=== PATIENT | female | born 1935 | race Caucasian/White ===

== ENCOUNTER 2016-04-06 19:11 | Inpatient (IN) | payer MEDICARE ==
[2016-04-06 23:14] VITALS: BP 130/66
[2016-04-06] MEDS ORDERED: Lactulose 10 Gm/15 mL 30mL UDC PO PRN (23:31)
[2016-04-07] MEDS: Multivitamin Tab PO SCH (09:37)
[2016-04-07] MEDS: Pantoprazole 40 mg EC Tab PO SCH (09:37)
--- NOTE | 2016-04-07 14:03 | Consultation ---
HISTORY OF PRESENT ILLNESS: An 80-year-old female patient of mine admitted to Geropsych Unit. PAST MEDICAL HISTORY: Significant for coronary artery disease, ____, arthritis, osteoporosis. SOCIAL HISTORY: No history of smoking or alcohol abuse. OBSTETRICAL HISTORY: P 2+0. Menses are postmenopausal. REVIEW OF SYSTEMS: No chest pain or shortness of breath. No nausea, no vomiting. Arthritic gait. PHYSICAL EXAMINATION: GENERAL: An elderly female in obvious respiratory distress. VITAL SIGNS: Include a blood pressure of 110/70, heart rate ____, respiratory rate of 18. SKIN: Show no cellulitis. HEENT: Normal conjunctivae. NECK: Supple. LUNGS: Clear. HEART: S1 and S2 present.. ABDOMEN: Soft, minimal epigastric tenderness. Bowel sounds good. EXTREMITIES: Show arthritis. NEUROLOGICAL: Dementia. ADMITTING DIAGNOSES: ____, arthritis, coronary artery disease, osteoporosis and dementia. TREATMENT PLAN: The patient is on Ativan, lactulose, Tylenol, Naprosyn and Protonix. JOB# [id number]
[2016-04-08] MEDS: Pantoprazole 40 mg EC Tab PO SCH (09:00)
[2016-04-08] MEDS: Multivitamin Tab PO SCH (09:00)
--- NOTE | 2016-04-08 18:53 | Psychosocial Evaluation ---
CHIEF COMPLAINT: Psychotic disorder. HISTORY OF PRESENT ILLNESS: The patient is an 80-year-old female with a history of dementia, was admitted to the hospital for increased confusion, agitation. The patient has been restless, wandering on the unit, refusing to talk, appetite is slow, assisted living facility no longer able to care for her because of increased agitation. The patient will attempt to undress at times and requires redirection by staff. PAST PSYCHIATRIC HISTORY: Dementia and psychosis and depression. PAST MEDICAL HISTORY: Significant for coronary artery disease, arthritis, osteoporosis. PSYCHOSOCIAL HISTORY: The patient resides in an assisted living, ____ this time unclear if she can return. MENTAL STATUS EXAMINATION: The patient was uncooperative, paranoid, keeping to herself, wandering on the unit, confused, oriented to person, not oriented to time or place. She is selectively mute. Insight is poor, judgment is impaired. The patient's strength; The patient is passively accepting treatment when approached by staff. The patient's weakness, lack of insight. ASSESSMENT: Major depressive disorder with psychosis; dementia, Alzheimer's type. Rule out delirium no otherwise specified. ____ medical history. PLAN: At this time, we will admit the patient for hospitalization, will start individual, group therapy, assess psychopharmacological intervention. ESTIMATED LENGTH OF STAY: 7 days. CRITERIA FOR DISCHARGE: Improved condition. No psychosis and safe disposition outpatient treatment plan. [facility]# [id number]
--- NOTE | 2016-04-09 03:42 | Progress Notes ---
SUBJECTIVE: I met this patient, discussed with staff, chart reviewed. Still restless, confused, still wandering on the unit, mostly talking to herself, responding to internal stimuli. Her insight is poor, judgment remains impaired. The patient however, slept fairly very well and her appetite is fair. Her insight is still poor, judgment remains impaired. ASSESSMENT: The patient is still confused, still in psychotic phase. PLAN: We will continue stabilization. Continue to monitor closely. Continue supportive measures. The patient was started on Aricept 5 mg daily. Consider adding small dose of Seroquel ____. We will monitor. JOB# [id number]
[2016-04-09] MEDS: Multivitamin Tab PO SCH (09:42)
[2016-04-09] MEDS: Pantoprazole 40 mg EC Tab PO SCH (09:42)
--- NOTE | 2016-04-10 06:02 | Progress Notes ---
SUBJECTIVE: I met with this patient, discussed with staff. Still superficial, disorganized, refusing to talk, selectively mute at times. The patient is still guarded, internally preoccupied; however, she is taking her medications. Her insight is still poor, judgment remains impaired. ASSESSMENT: The patient is still in psychotic phase. PLAN: We will continue hospitalization. Continue medication management. Continue supportive measures. Continue the Aricept 5 mg p.o. every day. We will monitor condition for the time being ____ 0.5 mg p.o. at bedtime. JOB# [id number]
[2016-04-10] MEDS: Multivitamin Tab PO SCH (09:25)
[2016-04-10] MEDS: Pantoprazole 40 mg EC Tab PO SCH (09:25)
--- NOTE | 2016-04-10 23:04 | Progress Notes ---
PSYCHIATRIC PROGRESS NOTE TIME PATIENT SEEN: 10:00 a.m. SUBJECTIVE: Staff was spoken to. The patient is interviewed. Mood is noted to be irritable. Affect is constricted. The patient is confused and pacing on the unit and trying to take her clothes off and has been trying to get into other people's rooms. The patient needs to be redirected. Coping skills are noted to be extremely poor. Sleep and appetite are also noted to be very poor. The patient has been having a lot of anxiety. The patient has been placed on Ativan. In view of the cognitive deficits, the patient is going to be placed on the Aricept and Namenda and low dose of the antipsychotic medication is going to be considered. ASSESSMENT: The patient is demented and confused. PLAN: To continue the patient with supportive therapy. I encouraged the patient to verbalize the concerns rather than to act out. JOB# [id number]
[2016-04-11] MEDS: Multivitamin Tab PO SCH (10:18)
[2016-04-11] MEDS: Pantoprazole 40 mg EC Tab PO SCH (10:18)
--- NOTE | 2016-04-12 00:50 | Progress Notes ---
TIME PATIENT SEEN: 08:00 a.m. SUBJECTIVE: Staff was spoken to. The patient is interviewed. Mood is noted to be irritable. Affect is constricted. The patient is confused and has been pacing most of the time on the unit. The patient has to be redirected. The patient has no insight into her illness. The patient is currently on 0.5 mg of the Ativan and in view of the patient's psychosis, possibly the patient is going to be started on low dose of the Seroquel and again to be followed up with the supportive therapy. ASSESSMENT: The patient is still confused, demented and agitated. PLAN: To continue the patient with the current medications and follow up. JOB# [id number]
[2016-04-12] MEDS: Pantoprazole 40 mg EC Tab PO SCH (09:51)
[2016-04-12] MEDS: Multivitamin Tab PO SCH (09:51)
--- NOTE | 2016-04-12 22:01 | Progress Notes ---
PSYCHIATRIC PROGRESS NOTE TIME PATIENT SEEN: 8:15 a.m. SUBJECTIVE: Staff was spoken to. The patient is interviewed. Mood is noted to be irritable. Affect is constricted. Insight and judgment at this time are noted to be still impaired. Impulse control seems to be poor. The patient is pacing on the unit. No side effects to the medications are noted. The patient has been having difficult time to ____ the medications. ASSESSMENT: The patient is still grossly psychotic and impulsive. PLAN: To add a low dose of the Seroquel and follow the patient up. JOB# [id number]
[2016-04-13] MEDS: Multivitamin Tab PO SCH (09:25)
[2016-04-13] MEDS: Pantoprazole 40 mg EC Tab PO SCH (09:25)
--- NOTE | 2016-04-14 02:24 | Progress Notes ---
TIME PATIENT SEEN: 8 a.m. SUBJECTIVE: Staff was spoken to. Patient is interviewed. The patient continues to be very confused, irritable and angry. The patient is pacing most of the time on the unit. Insight and judgment at this time are noted to be impaired. Impulse control ____ poor. The patient is having hard time to follow the directions. The patient has been on 12.5 mg of Seroquel which is going to be increased to 25 mg at bedtime and the patient is going to be closely monitored. ASSESSMENT: The patient is still psychotic. PLAN: To continue the patient with the supportive therapy and follow up. JOB# [id number]
[2016-04-14] MEDS: Pantoprazole 40 mg EC Tab PO SCH (09:32)
[2016-04-14] MEDS: Multivitamin Tab PO SCH (09:32)
--- NOTE | 2016-04-15 08:01 | Progress Notes ---
TIME PATIENT SEEN: 05:00 p.m. SUBJECTIVE: Staff was spoken to. The patient is interviewed. Mood is noted to be anxious. Affect is appropriate. Not suicidal or homicidal. Insight and judgment noted to be fair. Impulse control is also noted to be fair. No side effects to the medications are noted. The patient has been able to verbalize the concerns rather than to act out. The patient has been currently on Seroquel and has been able to tolerate the medication. ASSESSMENT: The patient is stabilizing. PLAN: To discharge the patient today for followup on outpatient basis. JOB# [id number]
--- NOTE | 2016-05-27 04:11 | Discharge Summary ---
IDENTIFYING DATA: The patient is an 81-year-old woman with a history of dementia, admitted here for increase in agitation and confusion. CHIEF COMPLAINT: "I don't know." DIAGNOSES AT THE TIME OF ADMISSION: 1a. Major depressive disorder with psychotic symptoms. 1b. Dementia of Alzheimer type, rule out delirium. HISTORY OF PRESENT ILLNESS: Please refer to the 04/07/2016, dictation done by Dr. William who was following for me. Physical examination at the time of admission was done by Dr. Tha Monroe and is noted to be significant for arthritis, coronary artery disease, osteoporosis and dementia. Lab studies done at the hospitalization have been reviewed by Dr. Monroe. HOSPITAL COURSE AND RESPONSE TO TREATMENT: The patient has been observed on inpatient unit, provided with supportive psychotherapy. The patient has been continued on the Namenda 5 mg twice a day and Seroquel has been given 25 mg at bedtime and the patient has been closely monitored. The patient has been encouraged to participate in the groups and verbalize the concerns. The patient with these medication changes has been observed and was noted to be doing fairly well. The agitated behavior started to resolve and hence the patient has been finally discharged to [facility] in [place] to be followed up by Dr. Monroe and Dr. Kevin. MENTAL STATUS EXAMINATION: At the time of discharge, the patient's mood is noted to be anxious. The patient's insight and judgment is noted to be improving. Impulse control seemed to be fair. No side effects to the medications are noted at the time of discharge. CONDITION: At the time of discharge noted to be stable. DIAGNOSES AT THE TIME OF DISCHARGE: AXIS I: 1a. Psychotic disorder, unspecified. 1b. Dementia and behavioral changes, secondary to it. AXIS II: None. AXIS III: Coronary artery disease, osteoporosis and arthritis. AFTERCARE PLAN: The patient is discharged to [facility] to be followed up on an outpatient basis. PROGNOSIS: At the time of discharge noted to be fair with the treatment. JOB# [id number]
== END 2016-04-14 20:32 | DRG 57 ==
LOC: GERO 19:11
PROVIDERS: ADMIT Psychiatry & Neurology Psychiatry; ATTEND Psychiatry & Neurology Psychiatry
DX: G30.9 Alzheimer's disease, unspecified (principal); F32.3 Major depressive disorder, single episode, severe with psychotic features; F02.80 Dementia in other diseases classified elsewhere, unspecified severity, without behavioral disturbance, psychotic disturbance, mood disturbance, and anxiety; K27.9 Peptic ulcer, site unspecified, unspecified as acute or chronic, without hemorrhage or perforation; I25.10 Atherosclerotic heart disease of native coronary artery without angina pectoris; M19.90 Unspecified osteoarthritis, unspecified site; M81.0 Age-related osteoporosis without current pathological fracture
CPT/HCPCS: G0410; Z7610